=== PATIENT | female | born 1995 | race Caucasian/White ===

== ENCOUNTER 2017-09-17 10:15 | Inpatient (IN) | payer OTHER, MEDICAID ==
[2017-09-17] MEDS ORDERED: IBUPROFEN 600 MG TAB PO (10:30)
[2017-09-17] MEDS ORDERED: MISOPROSTOL 200 MCG TAB PR ×2 (10:30→18:00)
[2017-09-17] MEDS ORDERED: BUTORPHANOL 2 MG INJ IV (10:30)
[2017-09-17] MEDS ORDERED: METHYLERGONOVINE 0.2 MG INJ IM ×2 (10:30→18:00)
[2017-09-17] MEDS ORDERED: LIDOCAINE 1% (MPF) 30 ML INJ INJ (10:30)
[2017-09-17] MEDS ORDERED: OXYTOCIN 30 UNITS/LR 500 ML IV ×3 (10:30→18:00)
[2017-09-17] MEDS ORDERED: CARBOPROST 250 MCG INJ IM ×2 (10:30→18:00)
[2017-09-17] MEDS: LACTATED RINGER'S 1,000 ML IV (10:51)
[2017-09-17] MEDS: AMPICILLIN 2 GM/NS (PMX) 100 ML IV (10:52)
[2017-09-17 10:53] LABS: ADD MAN DIFF? NO
[2017-09-17 11:17] LABS: AMPHETAMINE/METHAMPHETAMINE Positive (NEGATIVE); BARBITURATES Negative (NEGATIVE); BENZODIAZEPINES Negative (NEGATIVE); CANNABINOIDS Negative (NEGATIVE); COCAINE Negative (NEGATIVE); OPIATES Negative (NEGATIVE)
[2017-09-17 11:25] LABS: BASOPHILS % 0.3 % (0.0-2.0); EOSINOPHILS # 0.1 10^3/ul (0.0-0.5); EOSINOPHILS % 1.4 % (0.0-7.0); HEMATOCRIT 38.4 % (37.0-47.0); INR 0.87; LYMPHOCYTES # 1.9 10^3/ul (0.8-2.9); LYMPHOCYTES % 18.9 % (15.0-51.0); MEAN CORPUSCULAR HEMOGLOBIN 29.4 pg (29.0-33.0); MEAN CORPUSCULAR HGB CONC 33.9 g/dl (32.0-37.0); MEAN CORPUSCULAR VOLUME 86.9 fl (82.0-101.0); MEAN PLATELET VOLUME 11.2 fl (7.4-10.4); MONOCYTE # 0.8 10^3/ul (0.3-0.9); MONOCYTES % 7.7 % (0.0-11.0); NEUTROPHIL # 7.1 10^3/ul (1.6-7.5); PARTIAL THROMBOPLASTIN TIME 29.1 Sec (25.0-35.0); PLATELET COUNT 210 10^3/UL (140-415); PROTIME 11.9 Sec (11.9-14.9); PT RATIO 0.9; RED BLOOD COUNT 4.42 10^6/ul (4.20-5.40); RED CELL DISTRIBUTION WIDTH 14.4 % (11.5-14.5)
[2017-09-17] MEDS ORDERED: CITRIC ACID/SODIUM CITRATE 15 ML CUP (11:33)
[2017-09-17] MEDS ORDERED: ONDANSETRON 4 MG INJ (11:33)
[2017-09-17] MEDS: CITRIC ACID/SODIUM CITRATE 15 ML CUP PO (11:46)
[2017-09-17] MEDS: ONDANSETRON 4 MG INJ IV (11:46)
[2017-09-17] MEDS ORDERED: FENTAnyl 2MCG/ML-ROPIV 0.2% 100 ML (12:01)
[2017-09-17] MEDS ORDERED: NALOXONE (0.4 MG/ML) INJ IV (13:00)
[2017-09-17] MEDS ORDERED: ONDANSETRON 4 MG INJ IV (13:00)
[2017-09-17] MEDS ORDERED: TRIMETHOBENZAMIDE 100 MG/ML VIAL IM (13:00)
[2017-09-17] MEDS ORDERED: DIPHENHYDRAMINE 50 MG INJ IV (13:00)
[2017-09-17] MEDS: AMPICILLIN 1 GM/NS (PMX) 50 ML IV (15:03)
[2017-09-17] MEDS: FENTAnyl 2MCG/ML-ROPIV 0.2% 100 ML BAG EPI (17:24)
[2017-09-17] MEDS: LACTATED RINGER'S 1,000 ML IV* (17:40)
[2017-09-17] MEDS: OXYTOCIN 30 UNITS/LR 500 ML IV ×2 (17:46→17:47)
[2017-09-17] MEDS ORDERED: DIPHENHYDRAMINE 25 MG CAP PO (18:00)
[2017-09-17] MEDS: IBUPROFEN 800 MG TAB PO (18:00)
[2017-09-17] MEDS ORDERED: ZOLPIDEM 5 MG TAB PO (18:00)
[2017-09-17] MEDS ORDERED: MAGNESIUM HYDROXIDE 30ML CUP PO (18:00)
[2017-09-17] MEDS: IBUPROFEN 600 MG TAB PO (19:24)
[2017-09-17] MEDS: HYDROCODONE/APAP (5/325) TAB PO (20:22)
[2017-09-17 21:33] LABS: RAPID PLASMA REAGIN NONREACTIVE (NR)
[2017-09-17 22:06] LABS: ADD MAN DIFF? NO
[2017-09-17 22:08] LABS: WHITE BLOOD COUNT 13.3 10^3/ul (4.8-10.8)
[2017-09-17 22:08] LABS: BASOPHILS % 0.3 % (0.0-2.0); EOSINOPHILS % 0.1 % (0.0-7.0); HEMATOCRIT 38.2 % (37.0-47.0); HEMOGLOBIN 12.9 g/dl (12.0-16.0); LYMPHOCYTES # 1.7 10^3/ul (0.8-2.9); LYMPHOCYTES % 12.5 % (15.0-51.0); MEAN CORPUSCULAR HEMOGLOBIN 29.3 pg (29.0-33.0); MEAN CORPUSCULAR HGB CONC 33.8 g/dl (32.0-37.0); MEAN CORPUSCULAR VOLUME 86.6 fl (82.0-101.0); MONOCYTE # 0.9 10^3/ul (0.3-0.9); MONOCYTES % 6.5 % (0.0-11.0); NEUTROPHIL # 10.7 10^3/ul (1.6-7.5); PLATELET COUNT 219 10^3/UL (140-415); RED BLOOD COUNT 4.41 10^6/ul (4.20-5.40); RED CELL DISTRIBUTION WIDTH 14.3 % (11.5-14.5)
[2017-09-17 22:31] LABS: INR 0.82; PROTIME 11.4 Sec (11.9-14.9); PT RATIO 0.9
[2017-09-17 22:32] LABS: PARTIAL THROMBOPLASTIN TIME 29.4 Sec (25.0-35.0)
[2017-09-17 22:37] LABS: ALANINE AMINOTRANSFERASE 28 IU/L (13-69); ALBUMIN 2.8 g/dl (3.3-4.9); ALBUMIN/GLOBULIN RATIO 0.96; ALKALINE PHOSPHATASE 191 IU/L (42-121); ANION GAP 12 (8-16); ASPARTATE AMINO TRANSFERASE 24 IU/L (15-46); BLOOD UREA NITROGEN 9 mg/dl (7-20); CALCIUM 8.4 mg/dl (8.4-10.2); CARBON DIOXIDE 22 mmol/L (21-31); CHLORIDE 106 mmol/L (97-110); CREATININE 0.63 mg/dl (0.44-1.00); GLUCOSE 110 mg/dl (70-220); POTASSIUM 4.1 mmol/L (3.5-5.1); SODIUM 136 mmol/L (135-144); TOTAL PROTEIN 5.7 g/dl (6.1-8.1); URIC ACID 6.6 mg/dl (3.1-7.9)
[2017-09-17 22:55] LABS: ADD UMIC YES; UR ASCORBIC ACID NEGATIVE (NEGATIVE); UR BILIRUBIN (Dip) NEGATIVE (NEGATIVE); UR BLOOD (Dip) 2+ mg/dL (NEGATIVE); UR CLARITY CLEAR (CLEAR); UR COLOR RED (YELLOW); UR GLUCOSE (Dip) 1+ mg/dL (NEGATIVE); UR KETONES (Dip) NEGATIVE (NEGATIVE); UR LEUKOCYTE ESTERASE (Dip) NEGATIVE Leu/ul (NEGATIVE); UR NITRITE (Dip) NEGATIVE (NEGATIVE); UR RBC > 182 /HPF (0-5); UR SPECIFIC GRAVITY (Dip) 1.005 (1.003-1.030); UR TOTAL PROTEIN (Dip) 2+ mg/dl (NEGATIVE); UR UROBILINOGEN (Dip) NEGATIVE (NEGATIVE); UR WBC 0 /HPF (0-5)
[2017-09-17 23:05] LABS: FIBRIN SPLIT PRODUCT <10 ug/ml (<10)
[2017-09-18] MEDS: IBUPROFEN 800 MG TAB PO ×4 (00:03→17:23)
[2017-09-18] MEDS: LANOLIN 7 GM TUBE TOP (00:04)
[2017-09-18] MEDS: BENZOCAINE 20% 56 ML SPRAY TOP (00:04)
[2017-09-18] MEDS: WITCH HAZEL/GLYCERIN PAD PR (00:04)
[2017-09-18] MEDS: LACTATED RINGER'S 1,000 ML IV (00:47)
[2017-09-18] MEDS: LACTATED RINGER'S 1,000 ML IV* (01:40)
[2017-09-18 08:51] LABS: ADD MAN DIFF? NO
[2017-09-18] MEDS: SENNA/DOCUSATE NA (8.6MG/50MG) TAB PO (08:52)
[2017-09-18 08:54] LABS: BASOPHILS % 0.2 % (0.0-2.0); EOSINOPHILS # 0.2 10^3/ul (0.0-0.5); EOSINOPHILS % 1.6 % (0.0-7.0); HEMOGLOBIN 11.1 g/dl (12.0-16.0); LYMPHOCYTES # 2.4 10^3/ul (0.8-2.9); LYMPHOCYTES % 25.5 % (15.0-51.0); MEAN CORPUSCULAR HEMOGLOBIN 29.4 pg (29.0-33.0); MEAN CORPUSCULAR HGB CONC 33.6 g/dl (32.0-37.0); MEAN CORPUSCULAR VOLUME 87.5 fl (82.0-101.0); MEAN PLATELET VOLUME 11.3 fl (7.4-10.4); MONOCYTE # 0.6 10^3/ul (0.3-0.9); MONOCYTES % 6.6 % (0.0-11.0); NEUTROPHIL # 6.1 10^3/ul (1.6-7.5); NEUTROPHILS % 65.2 % (39.0-77.0); PLATELET COUNT 194 10^3/UL (140-415); RED BLOOD COUNT 3.77 10^6/ul (4.20-5.40); RED CELL DISTRIBUTION WIDTH 14.6 % (11.5-14.5)
[2017-09-18 08:54] LABS: WHITE BLOOD COUNT 9.4 10^3/ul (4.8-10.8)
[2017-09-18] MEDS: INFLUENZA VIRUS VACCINE 0.5 ML (DISPENSING) IM* (23:50)
[2017-09-19] MEDS: HYDROCODONE/APAP (5/325) TAB PO ×2 (02:37→06:42)
[2017-09-19] MEDS: ACETAMINOPHEN 325 MG TAB PO (04:58)
[2017-09-19] MEDS: IBUPROFEN 800 MG TAB PO ×3 (05:49→11:47)
[2017-09-19] MEDS: VARICELLA VACCINE LIVE/PF 1,350 UNIT/0.5 ML ML SC* (09:00)
[2017-09-19] MEDS: MEASLES,MUMPS,RUBELLA VACCINE INJ SC* (09:00)
[2017-09-19] MEDS: DIPHTH/TET/ACEL PERTUSS (ADULT) 0.5 ML VIAL IM* (11:48)
== END 2017-09-19 17:40 | disposition home or self-care (01) | DRG 775 ==
LOC: OBT 10:15 → L-D 10:17 → OBT 10:19 → L-D 10:27 → PP1 21:30
PROC: 10E0XZZ Delivery of Products of Conception, External Approach (ICD-10-PCS; principal; 2017-09-17)
DX: O80 Encounter for full-term uncomplicated delivery (principal); Z37.0 Single live birth; Z3A.38 38 weeks gestation of pregnancy
CPT/HCPCS: 62319; 80053; 80307; 81001; 84560; 85025; 85362; 85384; 85610; 85730; 86592; 86850; 86900; 86901; 90686; 90715; 90716; 99464

== ENCOUNTER 2017-11-13 14:26 | Emergency (ER) | payer SELFPAY, OTHER | END 2017-11-13 18:30 | disposition left against medical advice (07) | LOC: FTE 18:30 | DX: Z53.21 Procedure and treatment not carried out due to patient leaving prior to being seen by health care provider (principal) ==